=== PATIENT | female | born 1990 | race Caucasian/White ===

== ENCOUNTER 2017-07-16 02:03 | Emergency (ER) | payer MEDICAID, OTHER ==
[~2017-07-16] VITALS: Ht 175.3 cm; Wt 105.3 kg
[~2017-07-16 02:03] MED LIST: CEPH500C5 PO; DIAZ5TAB PO; ONDA4TAB6 PO
[2017-07-16] MEDS ORDERED: bacitracin 15gm ointment TP ONE (02:35)
[2017-07-16] MEDS ORDERED: TETanus/Pertussis (Acell)/Diphther VAC/PF (Tdap-Adult) 0.5ml syringe IM ONE (02:40)
[2017-07-16] MEDS ORDERED: ibuprofen tablet 400 MG TABLET PO ONE (02:40)
[2017-07-16 03:21] VITALS: BP 148/83
== END 2017-07-16 03:32 | disposition home or self-care (01) ==
LOC: ER 02:04
DX: S63.502A Unspecified sprain of left wrist, initial encounter (principal); X50.1XXA Overexertion from prolonged static or awkward postures, initial encounter; Y93.89 Activity, other specified; Y92.89 Other specified places as the place of occurrence of the external cause; Y99.8 Other external cause status
CPT/HCPCS: 73110; 73130; 90471; 90715; 99284; A6449

== ENCOUNTER 2018-02-27 00:08 | Emergency (ER) | payer OTHER ==
[~2018-02-27] VITALS: Ht 175.3 cm; Wt 103.2 kg
[~2018-02-27 00:08] MED LIST changes: -CEPH500C5 PO
[2018-02-27] MEDS ORDERED: CYCL-1 PO (01:05)
[2018-02-27] MEDS ORDERED: IBUP-1984 PO (01:05)
[2018-02-27] MEDS ORDERED: ketorolac trometh inj. 60 MG/2 ML VIAL IM ONE (01:05)
[2018-02-27 01:26] VITALS: BP 156/101
== END 2018-02-27 01:30 | disposition home or self-care (01) ==
LOC: ER 00:09
DX: S29.012A Strain of muscle and tendon of back wall of thorax, initial encounter (principal); Z87.442 Personal history of urinary calculi; Z98.890 Other specified postprocedural states; Z91.018 Allergy to other foods; W19.XXXA Unspecified fall, initial encounter; Y93.89 Activity, other specified; Y92.89 Other specified places as the place of occurrence of the external cause; Y99.9 Unspecified external cause status
CPT/HCPCS: 96372; 99283; J1885

== ENCOUNTER 2020-02-05 12:09 | Emergency (ER) | payer MEDICAID, OTHER ==
[~2020-02-05] VITALS: Ht 175.3 cm; Wt 96.0 kg
[~2020-02-05 12:09] MED LIST changes: +CYCL-1 PO
[2020-02-05] MEDS ORDERED: DIAZ5TAB PO (14:01)
[2020-02-05 14:20] VITALS: BP 144/89
== END 2020-02-05 14:10 | disposition home or self-care (01) ==
LOC: ER 12:09
DX: S16.1XXA Strain of muscle, fascia and tendon at neck level, initial encounter (principal); F32.9 Major depressive disorder, single episode, unspecified; F17.200 Nicotine dependence, unspecified, uncomplicated; F12.90 Cannabis use, unspecified, uncomplicated; Z87.442 Personal history of urinary calculi; Z98.890 Other specified postprocedural states; Z91.018 Allergy to other foods; Z79.899 Other long term (current) drug therapy; X50.1XXA Overexertion from prolonged static or awkward postures, initial encounter; Y93.89 Activity, other specified; Y92.89 Other specified places as the place of occurrence of the external cause; Y99.8 Other external cause status
CPT/HCPCS: 99283

== ENCOUNTER 2020-04-15 19:11 | Emergency (ER) | payer MEDICAID ==
[~2020-04-15] VITALS: Ht 175.3 cm; Wt 98.7 kg
[2020-04-15 19:38] LABS: CLARITY,URINE CLEAR (Clear); COLOR,URINE YELLOW (Yellow); GLUCOSE, URINE NEGATIVE (Neg); KETONES,URINE NEGATIVE (Neg); LEUKOCYTE ESTERASE ,URINE NEGATIVE (Neg); NITRITES, URINE NEGATIVE (Neg); OCCULT BLOOD,URINE MODERATE (Neg); PH,URINE 5.5 (4.8-8.0); PROTEIN,URINE NEGATIVE (Neg); UROBILINOGEN,URINE 0.2 E.U/dL (0.2-1.0)
[2020-04-15 19:39] LABS: URINE HCG POSITIVE (NEG)
[2020-04-15 19:53] LABS: UA COLLECTION TYPE CLN CATCH MIDSTREAM
[2020-04-15 20:00] LABS: SQUAMOUS EPITHELIAL CELL,UR MANY /LPF (FEW)
[2020-04-15 20:01] LABS: WBC,URINE 0-4 /HPF (0-4)
[2020-04-15 20:02] LABS: BACTERIA,URINE 1+ /HPF (Neg); MUCUS STRANDS MODERATE /LPF (Neg)
[2020-04-15 20:12] LABS: BASOPHILS % (AUTO) 0.3 % (0-1); EOSINOPHILS # (AUTO) 0.1 X10'3 (0-0.9); EOSINOPHILS % (AUTO) 0.8 % (0-6); HEMATOCRIT 43.5 % (35.0-45.0); HEMOGLOBIN 14.7 g/dl (12.0-16.0); LYMPHOCYTES # (AUTO) 2.6 X10'3 (1.1-4.8); LYMPHOCYTES % (AUTO) 18.2 % (21-51); MEAN CORPUSCULAR HEMOGLOBIN 30.6 PG (27.0-31.0); MEAN CORPUSCULAR HGB CONC 33.9 g/dL (33.0-36.5); MEAN CORPUSCULAR VOLUME 90.4 FL (78-98); MEAN PLATELET VOLUME 8.4 FL (7.4-10.4); MONOCYTES # (AUTO) 0.9 X10'3 (0-0.9); MONOCYTES % (AUTO) 6.7 % (2-12); NEUTROPHILS # (AUTO) 10.5 X10'3 (1.8-7.7); PLATELET COUNT 369 X10'3 (140-440); RED BLOOD COUNT 4.81 X10'6 (4.20-5.60); RED CELL DISTRIBUTION WIDTH 13.1 % (11.5-14.5); WHITE BLOOD COUNT 14.2 X10'3 (4.5-11.0)
[2020-04-15 20:22] LABS: ALANINE AMINOTRANSFERASE 23 U/L (12-78); ALBUMIN 4.5 G/DL (3.4-5.0); ALBUMIN/GLOBULIN RATIO 1.2 (1.1-1.5); ALKALINE PHOSPHATASE 76 IU/L (46-116); ANION GAP 12 (8-16); ASPARTATE AMINO TRANSFERASE 13 U/L (10-37); BILIRUBIN,TOTAL 0.5 MG/DL (0.1-1.0); BLOOD UREA NITROGEN 7 MG/DL (7-18); BUN/CREATININE RATIO 10.3 (6.6-38.0); CALCIUM 9.2 MG/DL (8.5-10.1); CHLORIDE 104 MMOL/L (99-107); CREATININE 0.68 MG/DL (0.40-0.90); GLUCOSE 96 MG/DL (70-104); LIPASE 80 U/L (73-393); POTASSIUM 3.7 MMOL/L (3.5-5.1); SODIUM 140 MMOL/L (135-145); TOTAL CARBON DIOXIDE 23.8 MMOL/L (24-32); TOTAL PROTEIN 8.3 G/DL (6.4-8.2); eGFR > 90 ML/MIN
[2020-04-15] MEDS ORDERED: ondansetron 4mg rapidly disintigrating tab PO ONE (21:25)
[2020-04-15] MEDS ORDERED: DOXY1TAB3 PO (21:29)
[2020-04-15 21:39] VITALS: BP 141/93
== END 2020-04-15 21:41 | disposition home or self-care (01) ==
LOC: ER 19:11
DX: O21.9 Vomiting of pregnancy, unspecified (principal); Z3A.01 Less than 8 weeks gestation of pregnancy; F12.10 Cannabis abuse, uncomplicated; F32.9 Major depressive disorder, single episode, unspecified; Z91.018 Allergy to other foods; Z79.899 Other long term (current) drug therapy; Z87.448 Personal history of other diseases of urinary system
CPT/HCPCS: 36415; 80053; 81001; 81025; 83690; 85025; 99283

== ENCOUNTER 2021-10-30 19:45 | Emergency (ER) | payer MEDICAID ==
[~2021-10-30] VITALS: Ht 172.7 cm; Wt 109.0 kg
[~2021-10-30 19:45] MED LIST changes: +DOXY1TAB3 PO
[2021-10-30 20:11] VITALS: BP 158/93
[2021-10-30] MEDS ORDERED: HYDROcodone/acetaminophen 10/325mg tab PO ONE (22:30)
[2021-10-30] MEDS ORDERED: penicillin V potassium 500mg tablet PO ONE (22:30)
[2021-10-30] MEDS ORDERED: PENI500T2 PO (22:32)
[2021-10-30] MEDS ORDERED: HYDR-3972 PO (22:32)
== END 2021-10-30 22:40 | disposition home or self-care (01) ==
LOC: ER 19:46
DX: K04.7 Periapical abscess without sinus (principal); F32.A Depression, unspecified; Z87.442 Personal history of urinary calculi; Z91.018 Allergy to other foods
CPT/HCPCS: 99283